=== PATIENT | female | born 1960 | race Caucasian/White ===

== ENCOUNTER → 2017-09-22 | Outpatient (CLI) | payer OTHER ==
[~2017-09-22] MED LIST: OPTIRAY 320 IV PRN
--- NOTE | 2017-09-22 10:54 | DIAGNOSTIC IMAGING REPORT ---
CT ANGIOGRAPHY OF THE ABDOMEN AND PELVIS WITH AND WITHOUT CONTRAST AND ENDOVASCULAR PROTOCOL CLINICAL HISTORY: Abdominal aortic aneurysm. COMPARISON STUDY: CTA of the abdomen and pelvis February 24, 2016. TECHNIQUE: Unenhanced, arterial and 2 minute delayed phase imaging of the abdomen and pelvis was performed. Injection of 119 cc Optiray 320 IV was uneventful. Sagittal and coronal reconstructions were viewed as well as maximal intensity projections on an independent 3-D workstation. FINDINGS: Visualized portions of the lower chest demonstrate trace bilateral pleural effusions which are unchanged and likely chronic. Subpleural opacities favor atelectasis, some of which reflect round atelectasis. A left hepatic lobe cyst is noted. The spleen, adrenal glands and pancreas are unremarkable. Biliary ductal dilatation is unchanged and likely related to prior cholecystectomy. There is no evidence for a bowel obstruction. There is no lymphadenopathy or ascites. There are no suspicious osseous lesions. The uterus is surgically absent. There is sigmoid diverticulosis without evidence for acute diverticulitis. 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 A bifurcated aortoiliac stent graft is in place. There is no evidence for endoleak or rupture. The aneurysm sac has decreased in size since prior exam of February 24, 2016, now measuring 5 x 4.2 cm. It previously measured 5.8 x 4.5 cm. 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 Note is made of bilateral renal artery stents. The left renal artery stent is patent. The proximal aspect of the right renal artery stent is difficult to assess due to artifact but is likely patent. Right femoral artery stent appears patent. IMPRESSION: 1. Status post aortobiiliac stent graft repair of abdominal aortic and left common iliac artery aneurysms. Interval decrease in size of the aneurysm sacs of the abdominal aorta and left common iliac arteries since exam of February 24, 2016. No evidence for endoleak. 2. Additional arterial stents, as described above. These appear patent although evaluation of the proximal right renal artery stent is difficult due to artifact. 3. Stable mild aneurysmal dilatation of the distal descending thoracic aorta. Electronically signed by: Jamel Oakley M.D. 09/22/2017 10:52 AM Dictated Date/Time: 09/22/2017 10:33 AM
== END | disposition home or self-care (01) ==
LOC: C.CTS 09:22
PROVIDERS: ATTEND Physician Assistant
DX: I71.4 Abdominal aortic aneurysm, without rupture (principal)